=== PATIENT | female | born 1970 | race Caucasian/White ===

== ENCOUNTER → 2020-06-30 12:06 | Outpatient (CLI) | payer BC, SELFPAY ==
--- NOTE | 2020-06-30 12:11 | DI.US.S_ITS ---
PROCEDURE: US ABDOMEN COMPLETE INDICATIONS: Abnormal levels of other serum enzymes TECHNIQUE: Real-time scanning was performed of the abdominal and retroperitoneal organs, with image documentation. COMPARISON: None. FINDINGS: Liver: Increased hepatic parenchymal echogenicity consistent with diffuse hepatic steatosis. No focal hepatic mass. Gallbladder: Status post cholecystectomy. Biliary ducts: Intrahepatic and extrahepatic biliary ductal dilatation. The common duct measures up to 10-11 millimeters. Pancreas: Visualized portions of the pancreas are sonographically normal. Spleen: Spleen is normal in size and homogeneous in echotexture. Kidneys: Normal size and appearance of both kidneys. No shadowing calculus or hydronephrosis. Aorta: Visualized aorta is normal in caliber at less than 3 cm. Iliacs: Proximal common iliac arteries are normal in caliber at less than 2.5 cm. IVC: Intrahepatic inferior vena cava is patent. Miscellaneous: No free abdominal fluid. IMPRESSION: Dilatation of both the intrahepatic and extrahepatic biliary system, likely a function of post cholecystectomy reservoir phenomenon given the remote cholecystectomy history. Biliary tract obstruction could not be strictly excluded. If there is clinical concern, MRCP or ERCP would be recommended. Hepatic steatosis, at least moderate Dictated by: Harlan Klein M.D. on 06/30/2020 at 13:27 Approved by: Harlan Klein M.D. on 06/30/2020 at 13:29
== END ==
PROVIDERS: Visit Provider Family Medicine
DX: R74.8 Abnormal levels of other serum enzymes (principal); K76.0 Fatty (change of) liver, not elsewhere classified; K83.8 Other specified diseases of biliary tract; Z90.49 Acquired absence of other specified parts of digestive tract
CPT/HCPCS: 76700

== ENCOUNTER → 2021-03-29 15:44 | Outpatient (CLI) | payer BC, SELFPAY ==
--- NOTE | 2021-03-29 15:45 | DI.US.S_ITS ---
PROCEDURE: US PELVIC COMPLETE INDICATIONS: Pelvic and perineal pain TECHNIQUE: Real-time scanning was performed of the pelvic organs, with image documentation. Additional endovaginal scanning was necessary due to incomplete visualization of the adnexal and endometrial structures by transabdominal scanning. COMPARISON: [facility], US, US ABDOMEN COMPLETE, 06/30/2020, 11:38. [facility], CT, ABDOMEN/PELVIS WITH CONTRAST, 11/08/2014, 14:47. FINDINGS: Uterus: Uterus is retroverted and normal in size at 5.9 x 3.5 x 2.3 cm. The myometrium is heterogeneous. The endometrium measures 10.3 mm combined thickness. No endometrial or myometrial masses. Ovaries: Ovaries are not identified. No adnexal masses are seen. Other: No pathologic free abdominal or pelvic fluid. IMPRESSION: 1. Abnormal postmenopausal endometrial thickening without a discrete mass visualized. Recommend clinical correlation and pelvic MRI or endometrial biopsy if indicated. 2. The ovaries are not identified sonographically. We strive to produce accurate, complete, and clear reports of imaging services. To assist us in improving patient care, this report was composed using standard report templates and voice recognition software. Therefore, it may contain abnormal punctuation, insertions and/or omissions. Occasional wrong-word or sound-alike substitutions may occur. Though we review the report and make efforts to correct it, we do recommend that the report be read carefully in proper context to recognize any text inaccuracies. Dictated by: Ronnie CUMMINGS Interpreted: Emerson Garza MD on 03/29/2021 at 16:44 Transcribed by: DIANA on 03/29/2021 at 16:46 Approved by: Emerson Garza M.D. on 04/05/2021 at 13:02
== END ==
PROVIDERS: PCP Orthopaedic Surgery; Referring Provider Orthopaedic Surgery; Visit Provider Family Medicine
DX: R10.2 Pelvic and perineal pain (principal); R93.89 Abnormal findings on diagnostic imaging of other specified body structures
CPT/HCPCS: 76830; 76856

== ENCOUNTER 2021-07-10 11:27 | Day surgery (SDC) | payer BC, SELFPAY ==
[2021-07-05 08:22] VITALS: BMI 38.5
--- NOTE | 2021-07-10 | PATH_ITS ---
[facility] Accession Number: [id number] . 01 Material submitted: . endometrium - ENDOMETRIAL SCRAPPINGS . 02 Diagnosis: Endometrial Scrapings: Avulsed squamous mucosa with reactive changes; negative for squamous dysplasia or malignancy. Small fragments of endometrial tissue and strips of endometrial glandular epithelium; negative for glandular hyperplasia, cytologic atypia, or malignancy. Please see comment. V 07/12/2021 1007 Local . 02 Comment: Due to the scant amount of endometrial tissue in this biopsy, it may not be entirely termite control service representative of this patient's endometrium; additional sampling could be considered, if clinically appropriate. . 02 Electronically signed: . Ashley Borges MD, Pathologist NPI- [id number] . 01 Gross description: . ENDOMETRIAL SCRAPPINGS: Received in formalin are minute fragments of mucoid and hemorrhagic material measuring 0.5 x 0.3 x 0.2 cm in aggregate. Submitted in toto in 1 cassette. /[place] 07/11/2021 1926 Local . 02 Pathologist provided ICD-10: R93.89 . 02 CPT . 203936 Specimen Comment: A courtesy copy of this report has been sent to [phone] Performed at: 01 [facility] [address], [place], [place] [id number] MD Emerson Tripathi MD Phone: [phone] Performed at: 02 [facility] [address] [place], [place] [id number] MD Michelle Rodriguez MD Phone: [phone]
[2021-07-10 12:00] LABS: COVID19 -Nasal RAPID Negative (Negative)
[2021-07-10 12:05] VITALS: BP 123/86; PULSE 96; RESP 18; TEMP 36.3; O2SAT 99
[2021-07-10 12:08] VITALS: BMI 38.5
[2021-07-10] MEDS: ACETAMINOPHEN 325 MG TABLET 975 MG PO (12:18)
[2021-07-10] MEDS: LACTATED RINGERS 1,000 ML 100 ML IV (12:18)
[2021-07-10] MEDS: SCOPOLAMINE 1 PATCH TOP (12:19)
[2021-07-10] MEDS: GABAPENTIN 300 MG CAPSULE PO (12:19)
--- NOTE | 2021-07-10 14:56 | PM.PREOP ---
Pre-operative Note COVID-19 COVID-19 status: Negative Result date/Date tested (Pos, Neg/Pending): 07/10/21 Criteria for continued procedure: Expected advancement of disease process Interval Note History & Physical reviewed/Exam performed by Physician: Yes Changes to H&P: No
--- NOTE | 2021-07-10 15:42 | SUR.OPER ---
Lithotomy on padded OR bed, head on pillow, arms secured on padded arm boards at <90 degrees abduction. Legs secured in padded yellow fins stirrups.
[2021-07-10 16:20] VITALS: BP 146/100; PULSE 93; RESP 13; TEMP 36.6; O2SAT 95
[2021-07-10 16:27] VITALS: BP 114/93; PULSE 94; RESP 12; O2SAT 97
--- NOTE | 2021-07-10 16:27 | PM.OP.1 ---
Operative Date/Time/Diagnoses Date of procedure: 07/10/21 Time of procedure: 16:27 Pre-op diagnosis: Thickened endometrium on ultrasound with pelvic cramping Post-op diagnosis: same Procedure & Clinicians Procedure: Hysteroscopy D&C Same procedure as scheduled: Yes Indications: Patient with thickened endometrium on ultrasound and pelvic cramping Surgeon: Aidee Jones Click Yes if Unassisted: Yes Anesthesia Type: General Operative Notes Findings: Normal exam under anesthesia. Thin endometrium without any endometrial or endocervical pathology. Closure Type: not applicable Specimen(s): other (Endometrial curettings) Estimated Blood Loss (mL): 1 Blood products transfused: none Procedure in detail: The patient was brought to the operating room where she underwent general anesthesia. She was placed in low stirrups She was prepped and draped in usual sterile fashion with pulsatile stockings in place and functional, warming in place, no antibiotics were indicated. Her bladder was drained with in and out catheter. A single-tooth tenaculum was placed on the anterior lip of the cervix and the uterus dilated to #8 Hegar dilator. The hysteroscope was placed into the uterus with a sorbitol solution running and under constant suction. An endometrial curettage was performed. The endometrial curettage was sent to pathology. The patient went to recovery room in good condition counts of instruments and sponges were correct. The sorbitol solution I=O approximately 1000 mL. Complications: none Post-operative Condition: stable Disposition: same day surgery Plan for aftercare: Home when awake and stable
[2021-07-10 16:30] VITALS: BP 154/99; PULSE 89; RESP 15; O2SAT 96
[2021-07-10] MEDS: MEPERIDINE 50 MG/ML INJ 12.5 MG IV ×2 (16:31→16:36)
[2021-07-10] MEDS: OXYCODONE IR 5 MG TABLET PO (16:31)
[2021-07-10 16:38] VITALS: BP 156/99; PULSE 91; RESP 14; O2SAT 96
[2021-07-10 16:47] VITALS: BP 138/97; PULSE 88; RESP 15; O2SAT 98
== END 2021-07-10 17:05 | disposition home or self-care (01) ==
LOC: OR 11:29
PROVIDERS: PCP Orthopaedic Surgery; Referring Provider Specialist; Visit Provider Specialist
PROC: 0UDB8ZZ Extraction of Endometrium, Via Natural or Artificial Opening Endoscopic (ICD-10-PCS; CPT 58558; principal; 2021-07-10 14:45)
DX: N94.89 Other specified conditions associated with female genital organs and menstrual cycle (principal); R93.89 Abnormal findings on diagnostic imaging of other specified body structures; N95.0 Postmenopausal bleeding; Z20.822 Contact with and (suspected) exposure to COVID-19
CPT/HCPCS: 58558; 81025; 87635; C9803; J1100; J2175; J2250; J2405; J2704

== ENCOUNTER → 2021-09-22 15:04 | Outpatient (CLI) | payer BC, SELFPAY ==
[2021-09-23 02:06] LABS: Creatinine Urine Random 75.9 mg/dL
[2021-09-23 02:12] LABS: Cholesterol 200 mg/dL (140-199); HDL Cholesterol 67 mg/dL (40-60); LDL Cholesterol Calculated 94 mg/dL (<100); Triglycerides 193 mg/dL (35-150)
[2021-09-23 02:17] LABS: Microalbumi Creatinin Ratio Ur 226.6 ug/mg CR (<30); Microalbumin Urine Random 17.2 mg/dL (0-1.6)
[2021-09-23 02:53] LABS: BUN Creatinine Ratio 20.1 (6-22); Blood Urea Nitrogen 27 mg/dL (7-17); Calcium 9.7 mg/dL (8.4-10.2); Carbon Dioxide 21 mmol/L (22-32); Chloride 101 mmol/L (98-107); Estimated Glomerular Filt Rate 48 mL/min (>60); Glucose 77 mg/dL (70-100); HEMOLYSIS 17 (0-50); Potassium 3.2 mmol/L (3.4-5.1); Sodium 138 mmol/L (137-145)
== END ==
PROVIDERS: PCP Pediatrics; Referring Provider Family Medicine; Visit Provider Family Medicine
DX: E78.5 Hyperlipidemia, unspecified (principal); Z12.31 Encounter for screening mammogram for malignant neoplasm of breast; I10 Essential (primary) hypertension
CPT/HCPCS: 36415; 80048; 80061; 82043; 82570

== ENCOUNTER → 2021-10-12 12:06 | Outpatient (CLI) | payer BC, SELFPAY ==
[2021-10-12 12:43] LABS: Hemoglobin A1C% w Est Avg Glu 5.7 % (4.0-6.0)
[2021-10-12 13:01] LABS: Erythrocyte Sedimentation Rate 38 MM/HR (0-20)
[2021-10-12 13:08] LABS: BUN Creatinine Ratio 11.7 (6-22); Blood Urea Nitrogen 21 mg/dL (7-17); C-Reactive Protein Quant 0.9 mg/dL (<1.0); Calcium 10.1 mg/dL (8.4-10.2); Carbon Dioxide 26 mmol/L (22-32); Chloride 100 mmol/L (98-107); Estimated Glomerular Filt Rate 34 mL/min (>60); Glucose 99 mg/dL (70-100); HEMOLYSIS < 15 (0-50); Potassium 3.9 mmol/L (3.4-5.1); Sodium 139 mmol/L (137-145)
[2021-10-12 17:30] LABS: Hep C Virus Ab w/Reflex Quant NEGATIVE s/c (NEGATIVE)
== END ==
PROVIDERS: PCP Pediatrics; Referring Provider Pediatrics; Visit Provider Pediatrics
DX: Z00.00 Encounter for general adult medical examination without abnormal findings (principal); R53.83 Other fatigue; R73.03 Prediabetes; E87.6 Hypokalemia; N18.30 Chronic kidney disease, stage 3 unspecified; K92.1 Melena; M79.2 Neuralgia and neuritis, unspecified
CPT/HCPCS: 36415; 80048; 83036; 84443; 85651; 86140; 86803

== ENCOUNTER → 2021-11-07 16:27 | Outpatient (CLI) | payer BC, SELFPAY ==
[2021-11-07 18:12] LABS: Add Manual Diff / Slide Review NO; Basophils Absolute Auto 100 /uL (0-100); Basophils Percent Auto 1.3 % (0-2); Eosinophils Absolute Auto 300 /uL (0-450); Eosinophils Percent Auto 6.6 % (2-4); Hematocrit 37.2 % (36-46); Hemoglobin 12.4 g/dL (12.0-16.0); Lymphocytes Absolute Auto 1800 /uL (1100-4500); Mean Corpuscular HGB Conc 33.4 % (30-36); Mean Corpuscular Volume 86.7 fL (80-100); Monocytes Absolute Auto 400 /uL (0-900); Monocytes Percent Auto 8.6 % (3-14); Neutrophils Absolute Auto 1800 /uL (1500-7000); Neutrophils Percent Auto 42.5 % (50-75); Platelet Count 307 X10^3/uL (150-400); Red Blood Cell Count 4.29 X10^6/uL (4.0-5.2); Red Cell Distribution Width 15.4 % (11.6-14.8); White Blood Cell Count 4.3 X10^3/uL (4.5-11.0)
[2021-11-07 18:26] LABS: Alanine Aminotransferase 33 IU/L (<35); Albumin 4.6 g/dL (3.5-5.0); Albumin Globulin Ratio 1.2 (1.0-2.8); Alkaline Phosphatase 97 U/L (38-126); Aspartate Aminotransferase 50 IU/L (14-36); BUN Creatinine Ratio 9.6 (6-22); Bilirubin Total 0.7 mg/dL (0.2-1.3); Blood Urea Nitrogen 8 mg/dL (7-17); Calcium 9.5 mg/dL (8.4-10.2); Carbon Dioxide 26 mmol/L (22-32); Chloride 99 mmol/L (98-107); Estimated Glomerular Filt Rate > 60 mL/min (>60); Globulin 3.8 g/dL (1.7-4.1); Glucose 120 mg/dL (70-100); HEMOLYSIS 15 (0-50); Potassium 2.9 mmol/L (3.4-5.1); Sodium 137 mmol/L (137-145); Total Protein 8.4 g/dL (6.3-8.2)
[2021-11-07 18:46] LABS: Erythrocyte Sedimentation Rate 43 MM/HR (0-20)
[2021-11-07 19:31] LABS: Creatinine Urine Random 59.1 mg/dL
[2021-11-07 19:36] LABS: Microalbumin Urine Random < 0.6 mg/dL (0-1.6)
== END ==
PROVIDERS: PCP Pediatrics; Referring Provider Pediatrics; Visit Provider Pediatrics
DX: E87.6 Hypokalemia (principal); N18.30 Chronic kidney disease, stage 3 unspecified
CPT/HCPCS: 36415; 80053; 82043; 82570; 85025; 85651

== ENCOUNTER → 2022-03-13 16:57 | Outpatient (CLI) | payer BC, SELFPAY ==
[2022-03-13 18:44] LABS: BUN Creatinine Ratio 17.3 (6-22); Blood Urea Nitrogen 22 mg/dL (7-17); Carbon Dioxide 25 mmol/L (22-32); Chloride 95 mmol/L (98-107); Estimated Glomerular Filt Rate 51 mL/min (>60); Glucose 105 mg/dL (70-100); HEMOLYSIS < 15 (0-50); Sodium 135 mmol/L (137-145)
[2022-03-13 22:13] LABS: Potassium Urine Random 55.8 mmol/L
== END ==
PROVIDERS: Internal Medicine Nephrology; PCP Family Medicine; Referring Provider Pediatrics; Visit Provider Pediatrics
DX: N05.9 Unspecified nephritic syndrome with unspecified morphologic changes (principal); E87.5 Hyperkalemia
CPT/HCPCS: 36415; 80048; 84133

== ENCOUNTER → 2022-08-22 15:40 | Outpatient (CLI) | payer BC, SELFPAY ==
[2022-08-22 16:23] LABS: BUN Creatinine Ratio 20.2 (6-22); Blood Urea Nitrogen 20 mg/dL (7-17); Calcium 9.8 mg/dL (8.4-10.2); Carbon Dioxide 26 mmol/L (22-32); Chloride 99 mmol/L (98-107); Estimated Glomerular Filt Rate > 60 mL/min (>60); Glucose 97 mg/dL (70-100); HEMOLYSIS < 15 (0-50); Potassium 4.3 mmol/L (3.4-5.1); Sodium 136 mmol/L (137-145)
[2022-08-22 17:12] LABS: Vitamin B12 408 pg/mL (239-931)
== END ==
PROVIDERS: PCP Family Medicine; Referring Provider Family Medicine; Visit Provider Family Medicine
DX: E78.5 Hyperlipidemia, unspecified (principal); N18.30 Chronic kidney disease, stage 3 unspecified; I10 Essential (primary) hypertension
CPT/HCPCS: 36415; 80048; 82607

== ENCOUNTER → 2022-11-09 16:03 | Outpatient (CLI) | payer BC, SELFPAY ==
[2022-11-09 17:00] LABS: Creatinine Urine Random 99.5 mg/dL
[2022-11-09 17:06] LABS: Microalbumin Urine Random < 0.6 mg/dL (0-1.6)
[2022-11-09 17:14] LABS: Alanine Aminotransferase 33 IU/L (<35); Albumin 4.6 g/dL (3.5-5.0); Albumin Globulin Ratio 1.2 (1.0-2.8); Alkaline Phosphatase 83 U/L (38-126); Aspartate Aminotransferase 35 IU/L (14-36); BUN Creatinine Ratio 18.1 (6-22); Bilirubin Total 0.4 mg/dL (0.2-1.3); Blood Urea Nitrogen 17 mg/dL (7-17); Calcium 9.8 mg/dL (8.4-10.2); Carbon Dioxide 29 mmol/L (22-32); Chloride 103 mmol/L (98-107); Estimated Glomerular Filt Rate > 60 mL/min (>60); Globulin 3.7 g/dL (1.7-4.1); Glucose 93 mg/dL (70-100); HEMOLYSIS < 15 (0-50); Potassium 4.3 mmol/L (3.4-5.1); Sodium 140 mmol/L (137-145); Total Protein 8.3 g/dL (6.3-8.2)
[2022-11-09 17:15] LABS: Cholesterol 175 mg/dL (140-199); HDL Cholesterol 48 mg/dL (40-60); LDL Cholesterol Calculated 85 mg/dL (<100); Triglycerides 209 mg/dL (35-150)
[2022-11-09 17:17] LABS: High Sensitivity CRP - Cardiac 6.7 mg/L (1.0-3.0)
== END ==
PROVIDERS: PCP Family Medicine; Referring Provider Family Medicine; Visit Provider Family Medicine
DX: E78.5 Hyperlipidemia, unspecified (principal); I10 Essential (primary) hypertension; N18.30 Chronic kidney disease, stage 3 unspecified; R74.01 Elevation of levels of liver transaminase levels; E87.6 Hypokalemia
CPT/HCPCS: 36415; 80053; 80061; 82043; 82570; 86140

== ENCOUNTER → 2024-04-02 12:51 | Outpatient (CLI) | payer OTHER, SELFPAY ==
[2024-04-02 14:33] LABS: Creatinine Urine Random 27.09 mg/dL; Protein (Total) Urine Random 13 mg/dL (0-12); Protein Creatinine Ratio Urine 0.47 GRAM/24H
[2024-04-02 14:52] LABS: Add Manual Diff / Slide Review NO; Basophils Absolute Auto 100 /uL (0-100); Basophils Percent Auto 1.1 % (0-2); Eosinophils Absolute Auto 300 /uL (0-450); Eosinophils Percent Auto 5.5 % (2-4); Hematocrit 39.5 % (36-46); Hemoglobin 13.2 g/dL (12.0-16.0); Lymphocytes Absolute Auto 2600 /uL (1100-4500); Lymphocytes Percent Auto 41.7 % (25-40); Mean Corpuscular HGB Conc 33.5 % (30-36); Mean Corpuscular Hemoglobin 28.9 PG (26-34); Mean Corpuscular Volume 86.3 fL (80-100); Monocytes Absolute Auto 500 /uL (0-900); Monocytes Percent Auto 7.7 % (3-14); Neutrophils Absolute Auto 2800 /uL (1500-7000); Platelet Count 311 X10^3/uL (150-400); Red Blood Cell Count 4.58 X10^6/uL (4.0-5.2); Red Cell Distribution Width 13.6 % (11.6-14.8); White Blood Cell Count 6.3 X10^3/uL (4.5-11.0)
[2024-04-02 14:54] LABS: Hemoglobin A1C% w Est Avg Glu 5.2 % (4.0-6.0)
[2024-04-02 15:04] LABS: Alanine Aminotransferase 31 IU/L (<35); Albumin 4.9 g/dL (3.5-5.0); Albumin Globulin Ratio 1.5 (1.0-2.8); Alkaline Phosphatase 95 U/L (38-126); Aspartate Aminotransferase 36 IU/L (14-36); BUN Creatinine Ratio 17.9 (6-22); Bilirubin Total 0.7 mg/dL (0.2-1.3); Blood Urea Nitrogen 20 mg/dL (7-17); Calcium 9.8 mg/dL (8.4-10.2); Carbon Dioxide 20 mmol/L (22-32); Chloride 105 mmol/L (98-107); Cholesterol 205 mg/dL (140-199); Estimated Glomerular Filt Rate 59 mL/min (>60); Globulin 3.3 g/dL (1.7-4.1); Glucose 86 mg/dL (70-100); HDL Cholesterol 87 mg/dL (40-60); HEMOLYSIS < 15 (0-50); LDL Cholesterol Calculated 90 mg/dL (<100); Potassium 4.2 mmol/L (3.4-5.1); Sodium 137 mmol/L (137-145); Total Protein 8.2 g/dL (6.3-8.2); Triglycerides 140 mg/dL (35-150)
== END ==
LOC: LAB 12:52
PROVIDERS: PCP Family Medicine; Referring Provider Family Medicine; Visit Provider Family Medicine
DX: E78.5 Hyperlipidemia, unspecified (principal); N18.30 Chronic kidney disease, stage 3 unspecified; R73.01 Impaired fasting glucose; Z68.38 Body mass index [BMI] 38.0-38.9, adult; I12.9 Hypertensive chronic kidney disease with stage 1 through stage 4 chronic kidney disease, or unspecified chronic kidney disease
CPT/HCPCS: 80053; 80061; 82570; 83036; 84156; 85025

== ENCOUNTER → 2025-01-29 14:38 | Outpatient (CLI) | payer OTHER, SELFPAY ==
[2025-01-29 15:36] LABS: Blood Urea Nitrogen 14 mg/dL (7-17); Calcium 10.0 mg/dL (8.4-10.2); Carbon Dioxide 24 mmol/L (22-32); Chloride 102 mmol/L (98-107); Estimated Glomerular Filt Rate > 60 mL/min (>60); Glucose 83 mg/dL (70-99); HEMOLYSIS < 15 (0-50); Potassium 4.3 mmol/L (3.4-5.1); Sodium 136 mmol/L (137-145)
[2025-01-30 03:11] LABS: CRP, High Sensitivity 3.28 mg/L (0.00-3.00)
== END ==
LOC: LAB 14:39
PROVIDERS: PCP Family Medicine; Referring Provider Family Medicine; Visit Provider Family Medicine
DX: E88.810 Metabolic syndrome (principal); E66.9 Obesity, unspecified; N18.30 Chronic kidney disease, stage 3 unspecified
CPT/HCPCS: 36415; 80048; 86140